=== PATIENT | female | born 1995 | race Two or more races ===

== ENCOUNTER → 2017-01-03 22:01 | Emergency (ER) | payer SELFPAY ==
[2017-01-03 21:25] LABS: URINE SOURCE CLEAN CATCH
[2017-01-03 21:36] LABS: URINE APPEARANCE TURBID; URINE BLOOD 3+ (NEG); URINE COLOR RED; URINE GLUCOSE NEG (NEG); URINE KETONE NEG (NEG); URINE LEUKOCYTE ESTERASE 1+ (NEG); URINE NITRATE NEG (NEG); URINE PROTEIN 1+ (NEG); URINE SPECIFIC GRAVITY 1.027 (1.003-1.035); URINE UROBILINOGEN 0.2 MG/DL (NEG)
[2017-01-03 21:37] LABS: CULTURE INDICATED? YES; URBCS1 AUWI INNUM /[HPF] (0-2); URINE BACTERIA AUWI NEG (NEGATIVE); URINE SQUAMOUS EPITHELIAL CELL FEW /[HPF]
[2017-01-03 21:42] LABS: URINE BILIRUBIN NEG (NEG)
== END | disposition home or self-care (01) ==
LOC: CFTX 22:01
PROVIDERS: Student in an Organized Health Care Education/Training Program
DX: Z33.2 Encounter for elective termination of pregnancy (principal)
CPT/HCPCS: 81003; 87086; 99284